=== PATIENT | female | born 1935 | race Caucasian/White ===

== ENCOUNTER 2021-08-10 06:10 | Emergency (ER) | payer MEDICARE, OTHER | END 2021-08-10 11:02 | disposition home or self-care (01) | LOC: ER1 06:10 | DX: S52.122A Displaced fracture of head of left radius, initial encounter for closed fracture (principal); S61.412A Laceration without foreign body of left hand, initial encounter; S61.411A Laceration without foreign body of right hand, initial encounter; S01.112A Laceration without foreign body of left eyelid and periocular area, initial encounter; S50.02XA Contusion of left elbow, initial encounter; W19.XXXA Unspecified fall, initial encounter; Y92.002 Bathroom of unspecified non-institutional (private) residence as the place of occurrence of the external cause | CPT/HCPCS: 12002; 12011; 70450; 73080; 73110; 99284 ==